=== PATIENT | female | born 1980 | race Caucasian/White ===

== ENCOUNTER 2021-07-16 02:34 | Emergency (ER) | payer MEDICAID ==
[~2021-07-16] VITALS: Ht 162.6 cm; Wt 73.3 kg
[2021-07-16 02:47] VITALS: BP 121/86
[2021-07-16] MEDS ORDERED: VISCOUS LIDOCAINE 2% 15 ML UDC PO ONE (03:00)
[2021-07-16] MEDS ORDERED: MAGNESIUM/ALUMINUM HYDROXIDE/SIMETHICONE 30ML UDC PO ONE (03:00)
[2021-07-16] MEDS ORDERED: FAMOTIDINE 20MG TABLET PO ONE (03:00)
[2021-07-16] MEDS ORDERED: MAG355OR21 MT (04:11)
[2021-07-16] MEDS ORDERED: FAMO-134 MT (04:11)
== END 2021-07-16 04:23 | disposition home or self-care (01) ==
LOC: ER 02:34
DX: K21.9 Gastro-esophageal reflux disease without esophagitis (principal); F41.9 Anxiety disorder, unspecified; Z98.890 Other specified postprocedural states; Z20.822 Contact with and (suspected) exposure to COVID-19
CPT/HCPCS: 87426; 93005; 99284